=== PATIENT | female | born 1960 | race Caucasian/White ===

== ENCOUNTER 2017-05-21 08:00 | Outpatient (CLI) | payer OTHER ==
[2017-05-21 13:02] LABS: BASOPHILS % (AUTO) 0.8 %; EOSINOPHILS # (AUTO) 0.2 10^3/uL (0.0-0.7); EOSINOPHILS % (AUTO) 4.4 %; HGB - HEMOGLOBIN 13.1 g/dL (12.0-16.0); LYMPHOCYTES # (AUTO) 1.3 10^3/uL (1.5-3.5); LYMPHOCYTES % (AUTO) 25.8 %; MEAN CORPUSCULAR HEMOGLOBIN 28.8 pg (27.0-31.0); MEAN CORPUSCULAR HGB CONC 33.8 g/dL (32.0-36.0); MEAN CORPUSCULAR VOLUME 85.2 fL (81.0-99.0); MEAN PLATELET VOLUME 8.7 fL (7.9-10.8); MONOCYTES # (AUTO) 0.4 10^3/uL (0.0-1.0); MONOCYTES % (AUTO) 8.2 %; NEUTROPHILS % (AUTO) 60.8 %; PLT - PLATELET COUNT 267 10^3/uL (130-450); RED BLOOD COUNT 4.53 10^6/uL (4.20-5.40); RED CELL DISTRIBUTION WIDTH 13.8 % (12.0-15.0); WHITE BLOOD COUNT 4.9 x10^3/uL (4.8-10.8)
[2017-05-21 13:27] LABS: ALBUMIN 3.6 g/dL (3.2-5.5); ALBUMIN/GLOBULIN RATIO 1.3 (1.0-2.2); ALKALINE PHOSPHATASE 65 IU/L (42-121); ALT ALANINE AMINOTRANSFERASE 25 IU/L (10-60); AST ASPARTATE AMINOTRANSFERASE 23 IU/L (10-42); BILIRUBIN,TOTAL 0.8 mg/dL (0.2-1.0); BUN - BLOOD UREA NITROGEN 17 mg/dL (6-20); CALCIUM 9.2 mg/dL (8.5-10.3); CARBON DIOXIDE - CO2 28 mmol/L (21-32); CHLORIDE 103 mmol/L (101-111); CHOL/HDL RATIO 2.3 (<4.4); CHOLESTEROL 156 mg/dL; CREATININE 0.7 mg/dL (0.4-1.0); GFR - MDRD 86 (>89); GLUCOSE 96 mg/dL (70-100); HDL CHOLESTEROL 69 mg/dL; LDL CHOLESTEROL,CALCULATED 75 mg/dL; LDL/HDL RATIO 1.1 (<4.4); SODIUM 139 mmol/L (135-145); TOTAL PROTEIN 6.4 g/dL (6.7-8.2); VLDL CHOLESTEROL 12 mg/dL
== END 2017-05-21 08:01 | disposition home or self-care (01) ==
LOC: LAB.N 08:00
PROVIDERS: ATTEND Nurse Practitioner Gerontology
DX: I10 Essential (primary) hypertension (principal)
CPT/HCPCS: 36415; 80053; 80061; 83721; 85025

== ENCOUNTER 2018-04-16 08:26 | Outpatient (CLI) | payer OTHER | END 2018-04-16 23:59 | disposition home or self-care (01) | LOC: LAB.R 08:26 | PROVIDERS: ATTEND Nurse Practitioner Gerontology | DX: R19.5 Other fecal abnormalities (principal); Z12.11 Encounter for screening for malignant neoplasm of colon | CPT/HCPCS: 82274 ==

== ENCOUNTER 2018-05-23 00:41 | Outpatient (CLI) | payer OTHER | END 2018-05-23 00:42 | disposition home or self-care (01) | LOC: EMS 00:41 | PROVIDERS: ATTEND Surgery | DX: M25.519 Pain in unspecified shoulder (principal); S00.81XA Abrasion of other part of head, initial encounter; S00.31XA Abrasion of nose, initial encounter; W01.0XXA Fall on same level from slipping, tripping and stumbling without subsequent striking against object, initial encounter; Y93.89 Activity, other specified; Y92.89 Other specified places as the place of occurrence of the external cause | CPT/HCPCS: A0425; A0429 ==

== ENCOUNTER 2018-05-23 00:57 | Emergency (ER) | payer OTHER ==
[2018-05-23] MEDS ORDERED: HYDROcod/ACETAM 5/325 MG TABLET PO STA (01:06)
[2018-05-23] MEDS ORDERED: LIDOCAINE PATCH 5% TOP STA (01:07)
[2018-05-23] MEDS ORDERED: KETOROLAC 60 MG/2 ML VIAL IM STA (01:07)
[2018-05-23] MEDS ORDERED: ONDANSETRON ODT 4 MG TABLET TL STA (01:08)
--- NOTE | 2018-05-23 02:44 | CT Report ---
Reason: facial trauma Procedure Date: 05/23/2018 Accession Number: [id number] / [id number] Procedure: CT - MAXILLOFACIAL WO CPT Code: FULL RESULT: EXAM: CT MAXILLOFACIAL WITHOUT CONTRAST EXAM DATE: 05/23/2018 02:13 AM. CLINICAL HISTORY: Facial trauma. COMPARISONS: None. TECHNIQUE: Thin-section axial images were acquired of the face without contrast. Post-processing: Coronal and sagittal reformats. Other: None. In accordance with CT protocol optimization, one or more of the following dose reduction techniques were utilized for this exam: automated exposure control, adjustment of mA and/or KV based on patient size, or use of iterative reconstructive technique. FINDINGS: Soft Tissue: The infratemporal fossa and parapharyngeal spaces are unremarkable. Orbits: Symmetric and unremarkable. Bones: No fracture or bone lesion. Temporomandibular Joints: The temporomandibular joints are symmetric and normally located. Sinuses: Left worse than right mucosal thickening, with a polyp or mucus retention cyst in the left maxillary sinus. No air-fluid levels. Other: Dental disease. IMPRESSION: No evidence of acute fracture. Chronic sinus disease and dental disease. RADIA
--- NOTE | 2018-05-23 02:45 | XRAY Report ---
Reason: thoracic pain after fall Procedure Date: 05/23/2018 Accession Number: [id number] / [id number] Procedure: XR - Chest 2 View X-Ray CPT Code: 93653 FULL RESULT: EXAM: CHEST RADIOGRAPHY EXAM DATE: 05/23/2018 02:14 AM. CLINICAL HISTORY: Thoracic pain after fall. COMPARISON: None. TECHNIQUE: 2 views. FINDINGS: Lungs/Pleura: No focal opacities evident. No pleural effusion. No pneumothorax. Normal volumes. Mediastinum: Heart and mediastinal contours are unremarkable. Other: Bilateral proximal humeral fractures. IMPRESSION: No evidence of acute cardiopulmonary disease. Bilateral proximal humeral fractures. RADIA
--- NOTE | 2018-05-23 03:15 | ED Physician Documentation ---
PD HPI UPPER EXT INJURY - Stated complaint Stated Complaint: GLF, SHOULDER PAIN - Chief complaint Chief Complaint: Trauma Ext - History obtained from History obtained from: Patient - History of Present Illness Location: Shoulder Type of injury: Fall Where injury occurred: Home Timing - onset: How many hours ago (2) Timing - duration: Hours (2) Timing - details: Abrupt onset Pain level max: 3 Pain level now: 3 Improved by: Rest Worsened by: Moving Associated symptoms: No: Weakness, Numbness Contributing factors: No: Anticoagulated, Prior ortho surgery (Patient was drinking and fell) Review of Systems Constitutional: reports: Reviewed and negative Eyes: reports: Reviewed and negative Ears: reports: Reviewed and negative Nose: reports: Reviewed and negative Throat: reports: Reviewed and negative Cardiac: reports: Reviewed and negative Respiratory: reports: Reviewed and negative GI: reports: Reviewed and negative : reports: Reviewed and negative Skin: reports: Reviewed and negative Musculoskeletal: reports: Reviewed and negative Neurologic: reports: Reviewed and negative Psychiatric: reports: Reviewed and negative Endocrine: reports: Reviewed and negative Immunocompromised: reports: Reviewed and negative PD PAST MEDICAL HISTORY - Past Medical History Past Medical History: No Respiratory: Asthma Other Past Medical History: Reviewed - Past Surgical History Past Surgical History: No Other past surgical history: Reviewed and not pertinent - Present Medications Home Medications: Ambulatory Orders Medication Instructions Recorded Confirmed Hydrocodone/Acetaminophen [[place] 1 - 2 each PO Q4HR PRN #12 tablet 05/23/18 5-325 Tablet] - Allergies Allergies/Adverse Reactions: Allergies Allergy/AdvReac Type Severity Reaction Status Date / Time ibuprofen Allergy Unknown Verified 05/23/18 01:09 latex Allergy Unknown Verified 05/23/18 01:09 - Living Situation Living Situation: reports: Alone Living Arrangement: reports: At home - Social History Does the pt smoke?: No Smoking Status: Never smoker Does the pt drink ETOH?: Yes - Family History Family history: reports: Other (Reviewed and not pertinent) PD ED PE NORMAL - Vitals Vital signs reviewed: Yes - General General: Alert and oriented X 3, No acute distress - HEENT HEENT: PERRL - Neck Neck: Supple, no meningeal sign - Cardiac Cardiac: RRR, No murmur, Other (Tender over the mid thoracic back.) - Respiratory Respiratory: Clear bilaterally - Abdomen Abdomen: Normal bowel sounds, Soft, Non tender, Non distended - Derm Derm: Warm and dry - Extremities Extremities: No deformity, No tenderness to palpate - Neuro Neuro: Alert and oriented X 3, Other (Neurovascularly intact in the axillary, radial, median, ulnar nerve distribution.) - Psych Psych: Normal mood, Normal affect Results - Vitals Vitals: Vital Signs - 24 hr 05/23/18 01:07 Temperature 36.8 C Heart Rate 80 Respiratory 16 Rate Blood Pressure 121/88 H O2 Saturation 94 Oxygen O2 Source Room air - Rads (name of study) Chest Radiology: Final report received (Bilateral proximal humerus fractures) Bilateral shoulder Radiology: Final report received (Bilateral proximal humerus fractures) PD MEDICAL DECISION MAKING - ED course Complexity details: re-evaluated patient, considered differential, d/w patient, d/w family ED course: 57-year-old female with bilateral proximal humerus fractures. Placed in slings and discharged in the care of family. Patient to follow-up with orthopedic surgery. Departure - Departure Disposition: 01 Home, Self Care Clinical Impression: Bilateral humeral fractures Qualifiers: Encounter type: initial encounter Fracture type: closed Qualified Code(s): S42.301A - Unspecified fracture of shaft of humerus, right arm, initial encounter for closed fracture Alcohol intoxication Qualifiers: Complication of substance-induced condition: uncomplicated Qualified Code(s): F10.920 - Alcohol use, unspecified with intoxication, uncomplicated Condition: Stable Instructions: Humerus Fx Follow-Up: Brian Dumont MD [Provider Admit Priv/Credential] - Prescriptions: Hydrocodone/Acetaminophen [[place] 5-325 Tablet] 1 - 2 each PO Q4HR PRN #12 tablet PRN Reason: Pain Comments: Follow-up with orthopedic surgery in 1 week. Return with worsening symptoms.
--- NOTE | 2018-05-23 03:43 | XRAY Report ---
Reason: bilateral humerus fracture Procedure Date: 05/23/2018 Accession Number: [id number] / [id number] Procedure: XR - Shoulder 3 View BILAT CPT Code: FULL RESULT: Bilateral Shoulder Radiography EXAM DATE: 05/23/2018 03:28 AM. CLINICAL HISTORY: Bilateral humerus fracture. COMPARISON: None. TECHNIQUE: 3 views each. FINDINGS: Right: Bones: Comminuted proximal humeral fracture, with anterior displacement and foreshortening. Joints: The glenohumeral and acromioclavicular joints are normal. Soft tissues: The visualized hemithorax is unremarkable. No soft tissue swelling. Left: Bones: Comminuted proximal humeral fracture, with anterior displacement and impaction. Joints: The glenohumeral and acromioclavicular joints are normal. Soft tissues: The visualized hemithorax is unremarkable. No soft tissue swelling. IMPRESSION: Bilateral proximal humeral fractures, comminuted. RADIA
[2018-05-23 03:49] VITALS: BP 121/90
== END 2018-05-23 04:53 | disposition home or self-care (01) ==
LOC: EDUNIT# → ED 00:57
DX: S42.202A Unspecified fracture of upper end of left humerus, initial encounter for closed fracture (principal); S42.201A Unspecified fracture of upper end of right humerus, initial encounter for closed fracture; W01.0XXA Fall on same level from slipping, tripping and stumbling without subsequent striking against object, initial encounter; F10.129 Alcohol abuse with intoxication, unspecified
CPT/HCPCS: 70486; 71046; 73030; 96372; 99283; A9270; Q0162

== ENCOUNTER 2018-05-26 15:53 | Outpatient (CLI) | payer OTHER ==
--- NOTE | 2018-05-26 16:42 | CT Report ---
Reason: UNSPECIFIED FRACTURE OF UPPER END OF RIGH HUMERUS, Procedure Date: 05/26/2018 Accession Number: [id number] / [id number] Procedure: CT - UPPER EXTREMITY WO - RT CPT Code: FULL RESULT: EXAM: RIGHT ELBOW CT WITHOUT CONTRAST EXAM DATE: 05/26/2018 04:22 PM. CLINICAL HISTORY: UNSPECIFIED FRACTURE OF UPPER END OF THE RIGHT HUMERUS. COMPARISON: SHOULDER 3 VIEW BILAT 05/23/2018 3:00 AM. TECHNIQUE: Thin-section axial images were acquired of the elbow without contrast. Post-processing: Coronal and sagittal reformats. Other: None. In accordance with CT protocol optimization, one or more of the following dose reduction techniques were utilized for this exam: automated exposure control, adjustment of mA and/or KV based on patient size, or use of iterative reconstructive technique. FINDINGS: As was seen on the prior radiographs there is a markedly comminuted fracture of the proximal right humerus. This includes a transversely oriented fracture across the humerus at the level of the surgical neck with moderate comminution at the fracture margins with very mild apex anterior angulation at this fracture as well as slight anterior displacement of the humeral shaft in relation to the humeral head. There is also a sagittally oriented fracture of the greater tuberosity of the humerus with the tuberosity fracture fragment displaced posteriorly and superiorly. Finally, there is an obliquely coronally oriented fracture across the anterior-inferior aspect of the humeral head articular surface immediately medial to the lesser tuberosity with slight depression of the inferior margin of the articular surface of the humeral head due to this fracture as seen on series 4 image 94. Most of the humeral head articular surface is intact. The glenoid, acromion, and distal clavicle are intact. Visible ribs are intact. The humeral head is positioned slightly posteriorly and inferiorly in relation to the glenoid fossa, probably pseudosubluxation related to the fracture. IMPRESSION: 1. Comminuted mildly angulated mildly displaced fracture of the humeral head as discussed in detail above. RADIA
--- NOTE | 2018-05-26 17:12 | CT Report ---
Reason: UNSPECIFIED FRACTURE OF UPPER END OF LEFT HUMERUS, Procedure Date: 05/26/2018 Accession Number: [id number] / [id number] Procedure: CT - UPPER EXTREMITY WO - LT CPT Code: FULL RESULT: EXAM: LEFT HUMERUS CT WITHOUT CONTRAST EXAM DATE: 05/26/2018 04:22 PM. CLINICAL HISTORY: UNSPECIFIED FRACTURE OF UPPER END OF LEFT HUMERUS. COMPARISON: SHOULDER 3 VIEW LT 05/25/2018 12:10 PM. TECHNIQUE: Thin-section axial images were acquired of the humerus without contrast. Post-processing: Coronal and sagittal reformats. Other: None. In accordance with CT protocol optimization, one or more of the following dose reduction techniques were utilized for this exam: automated exposure control, adjustment of mA and/or KV based on patient size, or use of iterative reconstructive technique. FINDINGS: As was seen on the prior radiographs there is a comminuted fracture of the proximal humerus. The dominant fracture plane is transversely oriented at the level of the surgical neck with mild to moderate comminution at the fracture margins. Mild apex anterior angulation is present at this fracture and there is slight impaction at the fracture as well. There is a further coronally oriented fracture across the far anterior margin of the greater tuberosity and a sagittally oriented fracture across the more posterior aspect of the greater tuberosity. No significant displacement of the greater tuberosity due to this fracture. There is displacement of a cortical fragment into the posterior medullary space of the humeral head with this fragment probably originating from the posterior humerus at the level of the surgical neck. There are a few tiny fracture fragments in the region of the axillary recess of the joint which are presumably displaced fracture fragments. The glenoid, acromion, and distal scapula are intact. The visible ribs are intact. Glenohumeral alignment is anatomic. IMPRESSION: 1. Comminuted mildly angulated mildly impacted mildly displaced multiplanar fracture of the proximal humerus as discussed in detail above. RADIA
== END 2018-05-26 15:54 | disposition home or self-care (01) ==
LOC: DI 15:53
PROVIDERS: ATTEND Orthopaedic Surgery Sports Medicine
DX: S42.291A Other displaced fracture of upper end of right humerus, initial encounter for closed fracture (principal)

== ENCOUNTER 2018-05-29 13:35 | Outpatient (CLI) | payer OTHER ==
[2018-05-29 13:55] LABS: BASOPHILS # (AUTO) 0.1 10^3/uL (0.0-0.1); BASOPHILS % (AUTO) 0.9 %; EOSINOPHILS # (AUTO) 0.3 10^3/uL (0.0-0.7); EOSINOPHILS % (AUTO) 4.2 %; HGB - HEMOGLOBIN 9.8 g/dL (12.0-16.0); LYMPHOCYTES # (AUTO) 1.5 10^3/uL (1.5-3.5); MEAN CORPUSCULAR HGB CONC 34.4 g/dL (32.0-36.0); MEAN CORPUSCULAR VOLUME 84.3 fL (81.0-99.0); MEAN PLATELET VOLUME 7.5 fL (7.9-10.8); MONOCYTES # (AUTO) 0.6 10^3/uL (0.0-1.0); MONOCYTES % (AUTO) 9.9 %; NEUTROPHILS # (AUTO) 3.6 10^3/uL (1.5-6.6); PLT - PLATELET COUNT 323 10^3/uL (130-450); RED BLOOD COUNT 3.37 10^6/uL (4.20-5.40); RED CELL DISTRIBUTION WIDTH 14.1 % (12.0-15.0); WHITE BLOOD COUNT 6.1 x10^3/uL (4.8-10.8)
[2018-05-29 14:04] LABS: CALCIUM 9.4 mg/dL (8.5-10.3)
== END 2018-05-29 13:36 | disposition home or self-care (01) ==
LOC: LAB 13:35
PROVIDERS: ATTEND Orthopaedic Surgery Sports Medicine
DX: Z01.812 Encounter for preprocedural laboratory examination (principal); S42.301A Unspecified fracture of shaft of humerus, right arm, initial encounter for closed fracture
CPT/HCPCS: 80048; 85025

== ENCOUNTER 2018-05-31 10:09 | Day surgery (SDC) | payer OTHER ==
[2018-05-31] MEDS ORDERED: LACTATED RINGERS 1,000 ML IV ONE ×2 (10:25→14:18)
--- NOTE | 2018-05-31 10:27 | ANESTHESIA ---
Pre-Anesthesia VS, & Labs - Diagnosis right proximal humerus fracture - Procedure ORIF right proximal humerus fracture Vital Signs: 163/94, 87, 12, 96%, 37.7 Height 5 ft 4 in Body Mass Index 31.7 - NPO >8 hours - Is Patient ?: No Home Medications and Allergies Home Medications: Ambulatory Orders Albuterol Sulfate [Proair Hfa Inhaler] 1 - 2 puffs INH Q4H PRN 05/28/18 Amlodipine Besylate 10 mg PO DAILY 05/28/18 Atorvastatin Calcium 20 mg PO DAILY 05/28/18 Clobetasol 0.05% Oint [Temovate 0.05% Oint] 1 applic TOP ONCE PRN 05/28/18 Fluticasone/Vilanterol [Breo Ellipta 200-25 Mcg INH] 1 each IH DAILY 05/28/18 Lisinopril/Hydrochlorothiazide [Lisinopril-Hctz 20-12.5 mg Tab] 2 tab PO DAILY 05/28/18 Montelukast [Singulair] 10 mg PO QPM 05/28/18 Acetaminophen [Extra Strength Non-Aspirin] 500 mg PO Q4HR 05/31/18 oxyCODONE [Roxicodone] 5 mg PO Q4-6H 05/31/18 Albuterol Sulfate [Proair Hfa Inhaler] 1 - 2 puffs INH Q4H PRN 05/28/18 Amlodipine Besylate 10 mg PO DAILY 05/28/18 Atorvastatin Calcium 20 mg PO DAILY 05/28/18 Clobetasol 0.05% Oint [Temovate 0.05% Oint] 1 applic TOP ONCE PRN 05/28/18 Fluticasone/Vilanterol [Breo Ellipta 200-25 Mcg INH] 1 each IH DAILY 05/28/18 Lisinopril/Hydrochlorothiazide [Lisinopril-Hctz 20-12.5 mg Tab] 2 tab PO DAILY 05/28/18 Montelukast [Singulair] 10 mg PO QPM 05/28/18 Allergies/Adverse Reactions: Allergies Allergy/AdvReac Type Severity Reaction Status Date / Time ibuprofen Allergy Hives Verified 05/28/18 14:46 latex Allergy Hives Verified 05/28/18 14:46 Anes History & Medical History - Anesthetic History Anesthesia Complications: reports: No previous complications - Medical History Cardiovascular: reports: Hypertension, High cholesterol, Murmur Pulmonary: reports: Asthma (takes sterioid inhaler, well controlled) Gastrointestinal: reports: Other Urinary: reports: None Musculoskeletal: reports: None Endocrine/Autoimmune: reports: None Skin: reports: Eczema Smoking Status: Never smoker - Surgical History Gynecologic: section Exam General: Alert Dental: WNL Mouth Openin Fingerbreadth Mallampati classification: III Thyromental Distance: greater than 6 cm Respiratory: Lungs clear Cardiovascular: Regular rate, Normal S1, Normal S2 Mental/Cognitive Status: Alert/Oriented X3 Plan Anesthesia Type: General, Interscalene Block Consent for Procedure(s) Verified and Reviewed: Yes Code Status: Attempt Resuscitation ASA classification: 2-Mild systemic disease Is this case an emergency?: No
[2018-05-31] MEDS ORDERED: ceFAZolin 2 GM/50 ML 2 GM/50 ML BAG IV ONE ×2 (10:40→13:51)
[2018-05-31] MEDS ORDERED: BUPIVACAINE 0.25% PF 10 ML VIAL ONE (11:53)
--- NOTE | 2018-05-31 11:54 | ANESTHESIA PROCEDURE NOTE ---
Diagnosis: Right distal humerus fracture Procedure: right interscalene block Consent for Procedure(s) Verified and Reviewed: Yes Height and Weight: Height 5 ft 4 in Weight (kg) 88 kg Body Mass Index 31.7 Vital Signs: Temp Pulse Resp BP Pulse Ox 37.7 C H 87 12 163/94 H 96 05/31/18 10:25 05/31/18 10:25 05/31/18 10:25 05/31/18 10:25 05/31/18 10:25 Allergies ibuprofen Allergy (Verified 05/28/18 14:46) Hives puffy latex Allergy (Verified 05/28/18 14:46) Hives puffy Requesting Provider: MD Ramon ASA classification: 2-Mild systemic disease Is this case an emergency?: No Anes. Monitoring and Equipment: Non-invasive BP, Pulse oximetery Anes. Procedure Start Time: 11:20 Anes. Procedure Stop Time: 11:48 Procedure Notes: Patient consent obtained, time out with RN, cloraprep to right neck. Needle 22g stimuplex 3" with ultrasound guidance. Ropivicaine 0.5% 30cc with 4mg of Decadron in 2-5 cc increments. Ocasional mild paresthesia to elbow/fingers, none during injection. Patient tolerated well with Versed 2mg and Fentanyl 50mcg. Pain relief in 5 minutes. Image of U/S with records to be scanned.
[2018-05-31] MEDS ORDERED: BUPIVACAINE 0.25% PF 30 ML VIAL SUBQ ONE (12:52)
[2018-05-31] MEDS ORDERED: PROPOFOL 200 MG/20 ML VIAL IVP ONE (13:51)
[2018-05-31] MEDS ORDERED: ROPIVACAINE 0.5% PF 20 ML AMPULE EP ONE (13:51)
[2018-05-31] MEDS ORDERED: ONDANSETRON 4 MG/2 ML VIAL IVP ONE (13:51)
[2018-05-31] MEDS ORDERED: LIDOCAINE-MPF 2% 5 ML VIAL IM ONE (13:51)
[2018-05-31] MEDS ORDERED: ROCURONIUM 50 MG/5 ML VIAL IVP ONE (13:51)
[2018-05-31] MEDS ORDERED: DEXAMETHASONE 4 MG/ML VIAL IVP ONE (13:51)
[2018-05-31] MEDS ORDERED: ACETAMINOPHEN 1,000 MG/100 ML 100 ML IV ONE (13:51)
[2018-05-31] MEDS ORDERED: ePHEDrine 50 MG/ML VIAL IVP ONE (13:51)
[2018-05-31] MEDS ORDERED: fentaNYL 100 MCG/2 ML VIAL IVP ONE (13:51)
[2018-05-31] MEDS ORDERED: MIDAZOLAM 2 MG/2 ML VIAL IVP ONE (13:51)
[2018-05-31] MEDS ORDERED: ONDANSETRON 4 MG/2 ML VIAL IVP PRN (14:41)
[2018-05-31] MEDS ORDERED: oxyCODONE 5 MG TABLET PO PRN (14:41)
--- NOTE | 2018-05-31 14:55 | IMMEDIATE POSTOPERATIVE NOTE ---
Immediate Postoperative Note - Procedure Note Procedure Date: 05/31/18 Pre-Op Diagnosis: RIGHT PROXIMAL HUMERUS FRACTURE Procedure: ORIF RIGHT PROXIMAL HUMERUS Post-Op Diagnosis: SAME Primary Surgeon: Saira CHRISTIE Anesthesia Type: General ET tube, Local Complications: No complications Estimated Blood Loss (in cc): 50 Plan of Care: PT TOLERATED PROCEDURE WELL. INSTRUMENT AND SPONGE COUNTS CORRECT. PT TRANSFERRED TO IN STABLE CONDITION. STD. POST OP R PROX HUM ORIF PROTOCOL
[2018-05-31 16:29] VITALS: BP 146/85
--- NOTE | 2018-06-01 08:20 | XRAY Report ---
Reason: ELBOW FX Procedure Date: 05/31/2018 Accession Number: [id number] / [id number] Procedure: FL - OR C-Arm Procedure CPT Code: FULL RESULT: EXAM: FLUOROSCOPIC GUIDANCE EXAM DATE: 05/31/2018 02:41 PM. CLINICAL HISTORY: Humerus fracture. COMPARISON: None. FINDINGS: 3 intraoperative spot films during open reduction internal fixation of a comminuted impacted right humeral head and neck fracture with a lateral plate and screw fixation device. Alignment is improved although there is persistent impaction at the anatomic neck. There is a 3 x 1.5 cm fracture fragment which is medial to the humeral head which is not fixed by hardware. IMPRESSION: Fluoroscopic guidance provided for right humerus ORIF. Total fluoroscopy time: 0.3. Number of images: 3. TERRANCE
--- NOTE | 2018-06-01 08:20 | XRAY Report ---
Reason: ORIF RIGHT HUMERUS Procedure Date: 05/31/2018 Accession Number: [id number] / [id number] Procedure: XR - Shoulder 3 View RT CPT Code: FULL RESULT: EXAM: RIGHT SHOULDER RADIOGRAPHY EXAM DATE: 05/31/2018 02:43 PM. CLINICAL HISTORY: ORIF right humerus. COMPARISON: OR C-ARM PROCEDURE 05/31/2018 1:11 PM. SHOULDER 3 VIEW LT 05/25/2018 12:10 PM. UPPER EXTREMITY LEFT W/O 05/26/2018 4:10 PM. TECHNIQUE: 3 views. FINDINGS: 3 intraoperative spot films during open reduction internal fixation of comminuted humeral fracture are provided. There has been placement of a plate and screw fixation device across a comminuted impacted fracture. Alignment is improved. There is a 3 x 1.5 cm fracture fragment which is adjacent to the humeral head which is not included in the fixation. IMPRESSION: Intraoperative spot films of shoulder ORIF as described. RADIA
--- NOTE | 2018-06-01 11:04 | OPERATIVE REPORT ---
DATE OF SERVICE: 05/31/2018 Physician: Ousmane Navarro MD SURGEON: Ousmane Navarro MD SEA CAPTAIN: None. ANESTHESIOLOGIST: Niranjan Jacob MD. PRE/POST OP DX: RIGHT PROXIMAL HUMERUS FRACTURE PROCEDURE: RIGHT PROXIMAL HUMERUS ORIF ANESTHESIA: General endotracheal anesthesia as well as 20 mL 0.25% Marcaine with epinephrine as well as right side regional block under ultrasound guidance. ESTIMATED BLOOD LOSS: Less than 50 mL COMPRESSION DEVICE: Bilateral calf SCD boots. PREOPERATIVE ANTIBIOTICS: Weight-based IV Ancef. FLUIDS: 1100 mL of lactated Ringer's. ORTHOPEDIC IMPLANTS: Synthes 3-hole proximal humerus locking plate with associated locking and nonlocking screws as well as three number #5 FiberWire sutures. INTRAOPERATIVE COMPLICATIONS: None noted. INTRAOPERATIVE FINDINGS: The patient was noted to have a comminuted 4-part proximal humerus fracture. There is significant valgus position of the head relative to the shaft in a "ice cream cone appearance" The shaft was translated anteriorly, though ultimately when reduced, the head shaft angle is improved and the shaft is intentionally impacted and the "door is closed" with regard to the tuberosities. Post-fixation, there is improved head shaft position and tuberosity position. There was good integrity of the repair and hardware was extra-articular. Of note, there was a small split in the interval between the posterior aspect of the supraspinatus and the infraspinatus, which is closed. The glenohumeral joint was noted to be located. HISTORY OF PRESENT ILLNESS AND INDICATIONS: Davida is a 57-year-old female with bilateral proximal humerus fractures. She was indicated for operative treatment right proximal humerus. CT scan provided additional detail as to fracture pattern for planning. We previously discussed risks, benefits, and alternatives of operative and nonoperative treatments with her and her daughter. Please see clinic dictation for further details. We again highlighted these in the preoperative area. Their questions were answered. They verbalized understanding of the previous discussion and verbalized her wish to proceed with operative treatment. Informed consent was given. PROCEDURE: On 05/31/2018, the patient was identified in the preoperative care unit. She identified her right shoulder as the operative site, and this was signed. The patient received preoperative weight-based IV antibiotics. She has regional block anesthesia administered under ultrasound guidance by the Anesthesia team. After satisfactory identification, care was taken to protect the patient's entire body, but also in particular, her left shoulder, which also has a proximal humerus fracture. The patient was brought to the operating room, placed supine on the operating table with passive positioning of her shoulders. General anesthesia was administered. Then, she was placed in a beach chair position, again safely and passively positioning her shoulders in a safe way to avoid further displacement of the contralateral left shoulder proximal humerus fracture. The patient's right upper extremity was then draped out. It was pre-scrubbed with Hibiclens solution and then prepped and draped in the usual sterile fashion. At this time, surgical pause identifies the right shoulder was the operative site. At this point, deltopectoral incision was made through skin, spreading dissection, carried out to the interval, which was split with bringing the cephalic vein laterally with the deltoid. The plane under the deltoid was developed using a Butler and a lap pad, thereby revealing the bursal tissue in the proximal humerus. At this point, the clavipectoral fascia was incised and then a Gem type retractor was used to gently retract against the conjoined tendon, avoiding over exuberant retraction, so as to protect adjacent nerve and against the deltoid. At this point, bursal tissue and hematoma was removed using a rongeur from the proximal humerus. This helps identify fracture fragments, as noted that the humeral head is collapsed and the greater tuberosity was quite posterior. The lesser tuberosity was captured with the tendo-osseous junction with a #5 FiberWire. The supraspinatus was also captured with a #5 FiberWire and then the infraspinatus at the tendo-osseous junction, once the greater tuberosity was mobilized anteriorly. This is captured at which point the supraspinatus suture was brought across the small split between the supraspinatus and infraspinatus for repair of that ultimately. At this point, a bone tamp was used to reduce the head and push it up improving the head shaft angle. This allowed closure of the "door" of the tuberosities and allows impaction and repositioning of the shaft into this construct. At this point, provisional fixation is with a plate and K-wires where the FiberWire's had been placed through the plate holes. One iteration shows inadequate reduction, though this is improved upon repeat reduction, and then the oval hole in the plate is drilled and a nonlocking screw was placed, which helped bring the plate to the bone and also further reduces the head component. Meanwhile tension was placed on the sutures capturing the rotator cuff tendo-osseous junction to control these structures and to help reduction there. At this point, multiple head screws unicortical are placed to avoid penetration of the articular surface. It should be noted that the plate is placed adequately low to avoid future impingement. At this point, a combination of fluoroscopic image alternating with screw placement allows placement of additional locking screws in the head and then in the shaft. Once these were placed and tightened, C-arm confirmed appropriate fracture reduction with intentional impaction. Direct visualization confirms reduction of the tuberosities, at which point the FiberWire's were tied over the plate, suture limbs were cut, and then oversewn so that they are flush to decrease the risk of subacromial impingement. Final fluoroscopic images were taken in AP, internal and external, and then once closure and dressing, the axillary view was taken. At this point, the wound was copiously irrigated. The deltopectoral interval was closed with a large Vicryl suture, followed by repeat irrigation and hemostasis, followed by skin closure using 0 Vicryl, 2-0 Vicryl interrupted nylon sutures. Local anesthesia was infused. Skin is washed and dried. Xeroform dressing applied. Dry sterile dressings applied. Micropore tape was applied. The patient was placed in a sling. The patient tolerated the procedure well. Instrument and sponge count was correct. The patient extubated. The contralateral side was placed in a sling as well. The patient was transferred to recovery room in stable condition. The patient tolerated the procedure well. The patient's daughter and were contacted in the waiting room. The case discussed, diagram was drawn for explanatory purposes. Intraoperative decision making was discussed, potential short-term and long-term problems with the patient's injury and surgery were discussed. The potential need for treatment alteration should she fail this surgery is discussed. We talked about treatment of the contralateral left shoulder as well and passive range of motion only in the shoulder. She may do active elbow, wrist and hand activities. We reviewed shoulder motions. She was given a prescription for pain medication, oxycodone, as well as short course of Keflex perioperative. She previously denied any contraindications to medications, using as directed. The patient's family's questions were answered to their understanding and satisfaction. The plan was outlined. They will notify us prior to the 10-14 day followup if problems or questions arise. TD: 06/01/2018 08:48 MICHELLE
== END 2018-05-31 10:10 | disposition home or self-care (01) ==
LOC: SDS 10:09
PROVIDERS: ATTEND Orthopaedic Surgery Sports Medicine
PROC: 0PSC04Z Reposition Right Humeral Head with Internal Fixation Device, Open Approach (ICD-10-PCS; principal; 2018-05-31 11:00)
DX: S42.201A Unspecified fracture of upper end of right humerus, initial encounter for closed fracture (principal); S42.252A Displaced fracture of greater tuberosity of left humerus, initial encounter for closed fracture; I10 Essential (primary) hypertension; J45.909 Unspecified asthma, uncomplicated; Z87.891 Personal history of nicotine dependence
CPT/HCPCS: 23615; 73030; 93005; C1713; J0131; J0690; J7120

== ENCOUNTER 2018-06-06 04:29 | Emergency (ER) | payer OTHER ==
--- NOTE | 2018-06-06 05:37 | ED Physician Documentation ---
PD HPI ABD PAIN - Stated complaint Stated Complaint: ABD PAIN - Chief complaint Chief Complaint: Abd Pain - History obtained from History obtained from: Patient, Family - History of Present Illness Timing - onset: How many days ago (15) Timing - duration: Days (15) Timing - details: Gradual onset, Still present Quality: Cramping, Sharp, Pain Location: All over / everywhere, Other (rectal) Improved by: BM Worsened by: Moving, Position, Palpation Associated symptoms: Nausea, Constipation Similar symptoms before: Diagnosis (constipation) Recently seen: Emergency Dept, Surgery - Additional information Additional information: 57-year-old female has had a fall and broken both of her humerus is. She has had surgery to fix the right humerus and she has been on some pain medications. She is constipated and has had very little stool output for the past 2 weeks. She has tried enema, senna, suppository and milk of magnesia. She did have some liquid stool out and now has significant pain. Review of Systems Constitutional: denies: Fever Eyes: denies: Decreased vision Ears: denies: Ear pain Nose: denies: Congestion Cardiac: denies: Palpitations Respiratory: denies: Dyspnea, Cough GI: reports: Abdominal Pain, Nausea, Constipation : denies: Dysuria, Frequency PD PAST MEDICAL HISTORY - Past Medical History Past Medical History: Yes Respiratory: Asthma - Past Surgical History Past Surgical History: Yes Ortho: Other - Present Medications Home Medications: Ambulatory Orders Medication Instructions Recorded Confirmed Ondansetron Odt [Zofran] 4 mg TL Q6H PRN #10 tablet 05/23/18 05/31/18 Albuterol Sulfate [Proair Hfa 1 - 2 puffs INH Q4H PRN 05/28/18 05/31/18 Inhaler] Clobetasol 0.05% Oint [Temovate 1 applic TOP ONCE PRN 05/28/18 05/31/18 0.05% Oint] Fluticasone/Vilanterol [Breo 1 each IH DAILY 05/28/18 05/31/18 Ellipta 200-25 Mcg INH] Lisinopril/Hydrochlorothiazide 2 tab PO DAILY 05/28/18 05/31/18 [Lisinopril-Hctz 20-12.5 mg Tab] Montelukast [Singulair] 10 mg PO QPM 05/28/18 05/31/18 RX: Amlodipine Besylate 10 mg PO DAILY 05/28/18 05/31/18 RX: Atorvastatin Calcium 20 mg PO DAILY 05/28/18 05/31/18 Acetaminophen [Extra Strength 500 mg PO Q4HR 05/31/18 05/31/18 Non-Aspirin] oxyCODONE [Roxicodone] 5 mg PO Q4-6H 05/31/18 05/31/18 - Allergies Allergies/Adverse Reactions: Allergies Allergy/AdvReac Type Severity Reaction Status Date / Time ibuprofen Allergy Hives Verified 06/06/18 04:41 latex Allergy Hives Verified 06/06/18 04:41 - Social History Does the pt smoke?: No Smoking Status: Never smoker Does the pt drink ETOH?: Yes Does the pt have substance abuse?: No Substance Use and Type: Marijuana - Immunizations Immunizations are current?: Yes - POLST Patient has POLST: No PD ED PE NORMAL - Vitals Vital signs reviewed: Yes (diastolic hypertension) - General General: No acute distress, Well developed/nourished - HEENT HEENT: Atraumatic, PERRL, EOMI - Neck Neck: Supple, no meningeal sign - Respiratory Respiratory: No respiratory distress - Abdomen Abdomen: Soft, Other (mild left lower quadrant tenderness to palpation no guarding or rebound tenderness. + bowel sounds. Distended. ) - Rectal Rectal: Other (stool is firm and at the opening and requires a deep sweep to get even a small amount out. ) - Back Back: No CVA TTP, No spinal TTP - Derm Derm: Normal color, Warm and dry, No rash - Extremities Extremities: No deformity, No edema - Neuro Neuro: Alert and oriented X 3, public health social worker 2-12 intact, No motor deficit, No sensory deficit, Normal speech Eye Opening: Spontaneous Motor: Obeys Commands Verbal: Oriented GCS Score: 15 - Psych Psych: Normal mood, Normal affect Results - Vitals Vitals: Vital Signs - 24 hr 06/06/18 06/06/18 04:34 06:20 Temperature 37.2 C Heart Rate 95 83 Respiratory 20 14 Rate Blood Pressure 115/83 H 114/80 O2 Saturation 98 96 Oxygen O2 Source Room air PD MEDICAL DECISION MAKING - ED course Complexity details: reviewed results, re-evaluated patient, considered differential, d/w patient, d/w family ED course: 57 y/o female with constipation has impaction and is disimpacted by the RN with good results. Departure - Departure Disposition: 01 Home, Self Care Clinical Impression: Constipation Condition: Stable Instructions: ED Constipation Follow-Up: Jennifer Lundy ARNP [Primary Care Provider] - Discharge Date/Time: 06/06/18 06:21
[2018-06-06 06:20] VITALS: BP 114/80
== END 2018-06-06 06:21 | disposition home or self-care (01) ==
LOC: ED 04:29
DX: K59.00 Constipation, unspecified (principal)
CPT/HCPCS: 99283; 99284

== ENCOUNTER 2018-08-11 08:27 | Outpatient (CLI) | payer OTHER ==
--- NOTE | 2018-08-11 10:21 | Mammography Report ---
Reason: SCREENING EXAM FOR BREAST CANCER,MAMMOGRAPHIC SCRE Procedure Date: 08/11/2018 Accession Number: [id number] / [id number] Procedure: MGN - Screening Mammo Dig Bilat CPT Code: FULL RESULT: EXAM: Screening Mammo Dig Bilat DATE: 08/11/2018 8:53 AM CLINICAL HISTORY: Screening TECHNIQUE: (B) - Bilateral CC and MLO views were obtained. COMPARISON: 04/23/2015, 02/22/2013 PARENCHYMAL PATTERN: (A) - The breasts demonstrate scattered fibroglandular densities bilaterally. FINDINGS: There are no suspicious masses, calcifications, or areas of distortion. IMPRESSION: Negative examination. BI-RADS category 1. RECOMMENDATION: (ANNUAL) - Recommend routine annual screening mammography. BI-RADS CATEGORY: (1) - Negative. STANDARD QUALIFYING STATEMENTS: 1. This examination was not reviewed with the aid of Computer-Aided Detection (CAD). 2. A negative or benign imaging report should not preclude biopsy if clinically suspicious findings are present. 3. Dense breasts may obscure an underlying neoplasm. 4. This examination was reviewed without the aid of 3D breast imaging (tomosynthesis).
== END 2018-08-11 08:28 | disposition home or self-care (01) ==
LOC: DI.N 08:27
PROVIDERS: ATTEND Nurse Practitioner Gerontology
DX: Z12.31 Encounter for screening mammogram for malignant neoplasm of breast (principal)
CPT/HCPCS: 77067

== ENCOUNTER 2019-03-28 13:24 | Outpatient (CLI) | payer OTHER ==
[2019-03-28 18:43] LABS: BASOPHILS % (AUTO) 0.5 %; EOSINOPHILS # (AUTO) 0.2 10^3/uL (0.0-0.7); EOSINOPHILS % (AUTO) 4.2 %; HGB - HEMOGLOBIN 13.5 g/dL (12.0-16.0); LYMPHOCYTES # (AUTO) 1.6 10^3/uL (1.5-3.5); MEAN CORPUSCULAR HEMOGLOBIN 28.8 pg (27.0-31.0); MEAN CORPUSCULAR HGB CONC 32.5 g/dL (32.0-36.0); MEAN CORPUSCULAR VOLUME 88.9 fL (81.0-99.0); MONOCYTES # (AUTO) 0.5 10^3/uL (0.0-1.0); MONOCYTES % (AUTO) 8.5 %; NEUTROPHILS # (AUTO) 3.3 10^3/uL (1.5-6.6); NEUTROPHILS % (AUTO) 58.4 %; PLT - PLATELET COUNT 330 10^3/uL (130-450); RED BLOOD COUNT 4.68 10^6/uL (4.20-5.40); RED CELL DISTRIBUTION WIDTH 13.6 % (12.0-15.0); WHITE BLOOD COUNT 5.7 x10^3/uL (4.8-10.8)
[2019-03-28 19:07] LABS: ALBUMIN/GLOBULIN RATIO 1.1 (1.0-2.2); ALKALINE PHOSPHATASE 62 IU/L (42-121); ALT ALANINE AMINOTRANSFERASE 22 IU/L (10-60); AST ASPARTATE AMINOTRANSFERASE 18 IU/L (10-42); BUN - BLOOD UREA NITROGEN 21 mg/dL (6-20); CALCIUM 9.4 mg/dL (8.5-10.3); CARBON DIOXIDE - CO2 29 mmol/L (21-32); CHLORIDE 99 mmol/L (101-111); CHOL/HDL RATIO 2.2 (<4.4); CHOLESTEROL 177 mg/dL; CREATININE 0.7 mg/dL (0.4-1.0); GFR - MDRD 85 (>89); GLUCOSE 88 mg/dL (70-100); HDL CHOLESTEROL 81 mg/dL; LDL CHOLESTEROL,CALCULATED 86 mg/dL; LDL/HDL RATIO 1.1 (<4.4); SODIUM 140 mmol/L (135-145); TOTAL PROTEIN 7.5 g/dL (6.7-8.2); VLDL CHOLESTEROL 10 mg/dL
== END 2019-03-28 23:59 | disposition home or self-care (01) ==
LOC: LAB.N 13:24
PROVIDERS: ATTEND Nurse Practitioner Gerontology
DX: J45.909 Unspecified asthma, uncomplicated (principal); I10 Essential (primary) hypertension
CPT/HCPCS: 36415; 80053; 80061; 83721; 85025

== ENCOUNTER 2020-07-24 08:00 | Outpatient (CLI) | payer OTHER ==
[2020-07-24 12:14] LABS: BASOPHILS % (AUTO) 0.6 %; EOSINOPHILS # (AUTO) 0.3 10^3/uL (0.0-0.7); EOSINOPHILS % (AUTO) 5.6 %; HCT - HEMATOCRIT 38.9 % (37.0-47.0); HGB - HEMOGLOBIN 12.4 g/dL (12.0-16.0); LYMPHOCYTES # (AUTO) 1.4 10^3/uL (1.5-3.5); LYMPHOCYTES % (AUTO) 27.8 %; MEAN CORPUSCULAR HEMOGLOBIN 28.4 pg (27.0-31.0); MEAN CORPUSCULAR HGB CONC 31.9 g/dL (32.0-36.0); MEAN PLATELET VOLUME 10.7 fL (7.9-10.8); MONOCYTES # (AUTO) 0.4 10^3/uL (0.0-1.0); MONOCYTES % (AUTO) 8.5 %; NEUTROPHILS % (AUTO) 57.3 %; PLT - PLATELET COUNT 342 10^3/uL (130-450); RED BLOOD COUNT 4.37 10^6/uL (4.20-5.40); RED CELL DISTRIBUTION WIDTH 12.9 % (12.0-15.0); WHITE BLOOD COUNT 5.2 x10^3/uL (4.8-10.8)
== END 2020-07-24 23:59 | disposition home or self-care (01) ==
LOC: LAB.WCP 08:00
PROVIDERS: ATTEND Family Medicine
DX: I10 Essential (primary) hypertension (principal)
CPT/HCPCS: 36415; 80053; 80061; 83721; 85025

== ENCOUNTER 2021-11-05 10:48 | Outpatient (CLI) | payer OTHER ==
--- NOTE | 2021-11-06 10:29 | Mammography Report ---
BILATERAL DIGITAL SCREENING MAMMOGRAM 3D/2D: 11/05/2021 CLINICAL: Family history of breast cancer. Routine screening. Comparison is made to exams dated: 08/11/2018 mammogram, 04/23/2015 mammogram, and 02/22/2013 mammogra m - [facility]. There are scattered areas of fibroglandular density in both breasts (category b / 25%-50% glandular t issue). No significant masses, calcifications, or other findings are seen in either breast. There has been no significant interval change. IMPRESSION: NEGATIVE There is no mammographic evidence of malignancy. A 1 year screening mammogram is recommended. Based on the Tyrer Cuzick model (a risk assessment model) the patients lifetime risk is 12.9% and he r 10 year risk is 5.9%. According to the ACR, ACS, and NCCN guidelines, an annual breast MRI exam ti ng with mammogram is recommended if the patients lifetime risk is 20% or greater. This exam was interpreted at Station ID: [id number]. NOTE: For mammograms, a report in lay terms will be sent to the patient. Approximately 15% of breast malignancies will not be visualized mammographically. In the management of a palpable breast mass, a negative mammogram must not discourage biopsy of a clinically suspicious lesion. Electronically Signed By: Carlos [email or web address]/[email or web address]:11/05/2021 14:08:25 ACR BI-RADS Category 1: Negative [id number] PARENCHYMAL PATTERN: (A) - The breast(s) demonstrate(s) scattered fibroglandular densities. BI-RADS CATEGORY: (1) - 1 RECOMMENDATION: (ANNUAL) - Recommend routine annual screening mammography. [id number] 1 year screening LATERALITY: (B)
== END 2021-11-05 10:49 | disposition home or self-care (01) ==
LOC: DI.N 10:48
PROVIDERS: ATTEND Physician Assistant
DX: Z12.31 Encounter for screening mammogram for malignant neoplasm of breast (principal); Z80.3 Family history of malignant neoplasm of breast

== ENCOUNTER 2021-11-05 10:58 | Outpatient (CLI) | payer OTHER ==
[2021-11-05 17:50] LABS: BASOPHILS % (AUTO) 0.5 %; EOSINOPHILS # (AUTO) 0.3 10^3/uL (0.0-0.7); EOSINOPHILS % (AUTO) 4.9 %; HCT - HEMATOCRIT 37.5 % (37.0-47.0); HGB - HEMOGLOBIN 12.3 g/dL (12.0-16.0); LYMPHOCYTES # (AUTO) 1.5 10^3/uL (1.5-3.5); LYMPHOCYTES % (AUTO) 27.1 %; MEAN CORPUSCULAR HEMOGLOBIN 28.5 pg (27.0-31.0); MEAN CORPUSCULAR HGB CONC 32.8 g/dL (32.0-36.0); MONOCYTES # (AUTO) 0.6 10^3/uL (0.0-1.0); MONOCYTES % (AUTO) 9.7 %; NEUTROPHILS # (AUTO) 3.3 10^3/uL (1.5-6.6); NEUTROPHILS % (AUTO) 57.4 %; PLT - PLATELET COUNT 317 10^3/uL (130-450); RED BLOOD COUNT 4.31 10^6/uL (4.20-5.40); RED CELL DISTRIBUTION WIDTH 13.5 % (12.0-15.0); WHITE BLOOD COUNT 5.7 x10^3/uL (4.8-10.8)
[2021-11-05 18:08] LABS: ALBUMIN 3.7 g/dL (3.2-5.5); ALKALINE PHOSPHATASE 65 IU/L (42-121); ALT ALANINE AMINOTRANSFERASE 24 IU/L (10-60); AST ASPARTATE AMINOTRANSFERASE 19 IU/L (10-42); BILIRUBIN,TOTAL 0.4 mg/dL (0.2-1.0); BUN - BLOOD UREA NITROGEN 26 mg/dL (6-20); CALCIUM 9.5 mg/dL (8.5-10.3); CARBON DIOXIDE - CO2 30 mmol/L (21-32); CHLORIDE 101 mmol/L (101-111); CHOL/HDL RATIO 2.5 (<4.4); CHOLESTEROL 180 mg/dL; CREATININE 0.8 mg/dL (0.4-1.0); GFR - MDRD 72 (>89); GLUCOSE 97 mg/dL (70-100); HDL CHOLESTEROL 72 mg/dL; LDL CHOLESTEROL,CALCULATED 98 mg/dL; LDL/HDL RATIO 1.4 (<4.4); POTASSIUM 3.9 mmol/L (3.5-5.0); SODIUM 140 mmol/L (135-145); TOTAL PROTEIN 7.3 g/dL (6.7-8.2); TRIGLYCERIDES 52 mg/dL; VLDL CHOLESTEROL 10 mg/dL
== END 2021-11-05 10:59 | disposition home or self-care (01) ==
LOC: LAB.N 10:58
PROVIDERS: ATTEND Family Medicine
DX: I10 Essential (primary) hypertension (principal); E78.5 Hyperlipidemia, unspecified
CPT/HCPCS: 36415; 80053; 80061; 83721; 85025

== ENCOUNTER 2023-06-11 10:18 | Outpatient (CLI) | payer OTHER, MEDICARE ==
[2023-06-11 12:18] LABS: BASOPHILS % (AUTO) 0.6 %; EOSINOPHILS # (AUTO) 0.1 10^3/uL (0.0-0.7); EOSINOPHILS % (AUTO) 2.1 %; HCT - HEMATOCRIT 40.7 % (37.0-47.0); HGB - HEMOGLOBIN 13.2 g/dL (12.0-16.0); LYMPHOCYTES # (AUTO) 1.6 10^3/uL (1.5-3.5); LYMPHOCYTES % (AUTO) 25.3 %; MEAN CORPUSCULAR HEMOGLOBIN 28.4 pg (27.0-31.0); MEAN CORPUSCULAR HGB CONC 32.4 g/dL (32.0-36.0); MEAN CORPUSCULAR VOLUME 87.5 fL (81.0-99.0); MEAN PLATELET VOLUME 10.6 fL (7.9-10.8); MONOCYTES # (AUTO) 0.5 10^3/uL (0.0-1.0); MONOCYTES % (AUTO) 7.6 %; NEUTROPHILS % (AUTO) 64.1 %; PLT - PLATELET COUNT 338 10^3/uL (130-450); RED BLOOD COUNT 4.65 10^6/uL (4.20-5.40); RED CELL DISTRIBUTION WIDTH 14.4 % (12.0-15.0); WHITE BLOOD COUNT 6.3 x10^3/uL (4.8-10.8)
[2023-06-11 12:25] LABS: ALBUMIN/GLOBULIN RATIO 1.2 (1.0-2.2); ALKALINE PHOSPHATASE 64 IU/L (42-121); ALT ALANINE AMINOTRANSFERASE 23 IU/L (10-60); AST ASPARTATE AMINOTRANSFERASE 19 IU/L (10-42); BILIRUBIN,TOTAL 0.6 mg/dL (0.2-1.0); BUN - BLOOD UREA NITROGEN 25 mg/dL (6-20); CALCIUM 10.2 mg/dL (8.5-10.3); CARBON DIOXIDE - CO2 29 mmol/L (21-32); CHLORIDE 102 mmol/L (101-111); CHOL/HDL RATIO 2.9 (<4.4); CHOLESTEROL 193 mg/dL; CREATININE 0.9 mg/dL (0.6-1.3); GFR - MDRD 63 (>89); GLUCOSE 105 mg/dL (74-104); HDL CHOLESTEROL 67 mg/dL; LDL CHOLESTEROL,CALCULATED 100 mg/dL; LDL/HDL RATIO 1.5 (<4.4); POTASSIUM 3.6 mmol/L (3.5-4.5); SODIUM 139 mmol/L (135-145); TOTAL PROTEIN 7.3 g/dL (6.4-8.9); TRIGLYCERIDES 130 mg/dL (48-352); VLDL CHOLESTEROL 26 mg/dL
[2023-06-11 12:40] LABS: THYROID STIMULATING HORMONE 2.91 uIU/mL (0.34-5.60)
== END 2023-06-11 10:19 | disposition home or self-care (01) ==
LOC: LAB.N 10:18
PROVIDERS: ATTEND Physician Assistant
DX: I10 Essential (primary) hypertension (principal); E78.5 Hyperlipidemia, unspecified
CPT/HCPCS: 36415; 80050; 80061; 83721